=== PATIENT | female | born 1980 | race Caucasian/White ===

== ENCOUNTER 2017-02-24 16:28 | Inpatient (IN) | payer MEDICAID, OTHER ==
[2017-02-24 17:09] LABS: ADD MAN DIFF? NO
[2017-02-24 17:11] LABS: WHITE BLOOD COUNT 10.2 10^3/ul (4.8-10.8)
[2017-02-24 17:11] LABS: BASOPHILS % 0.3 % (0.0-2.0); EOSINOPHILS # 0.1 10^3/ul (0.0-0.5); EOSINOPHILS % 0.9 % (0.0-7.0); HEMATOCRIT 30.9 % (37.0-47.0); HEMOGLOBIN 10.8 g/dl (12.0-16.0); LYMPHOCYTES # 2.9 10^3/ul (0.8-2.9); LYMPHOCYTES % 28.4 % (15.0-51.0); MEAN CORPUSCULAR VOLUME 85.8 fl (82.0-101.0); MEAN PLATELET VOLUME 12.2 fl (7.4-10.4); MONOCYTE # 1.1 10^3/ul (0.3-0.9); MONOCYTES % 10.9 % (0.0-11.0); NEUTROPHIL # 5.9 10^3/ul (1.6-7.5); NEUTROPHILS % 58.1 % (39.0-77.0); PLATELET COUNT 185 10^3/UL (140-415); RED CELL DISTRIBUTION WIDTH 12.3 % (11.5-14.5)
[2017-02-24 17:26] LABS: INR 0.81; PROTIME 11.2 Sec (11.9-14.9); PT RATIO 0.9
[2017-02-24 17:30] LABS: ALANINE AMINOTRANSFERASE 20 IU/L (13-69); ALBUMIN 3.1 g/dl (3.3-4.9); ALBUMIN/GLOBULIN RATIO 0.86; ALKALINE PHOSPHATASE 122 IU/L (42-121); ANION GAP 15 (8-16); ASPARTATE AMINO TRANSFERASE 16 IU/L (15-46); BLOOD UREA NITROGEN 11 mg/dl (7-20); CALCIUM 8.9 mg/dl (8.4-10.2); CARBON DIOXIDE 23 mmol/L (21-31); CHLORIDE 106 mmol/L (97-110); CREATININE 0.67 mg/dl (0.44-1.00); GLUCOSE 90 mg/dl (70-220); SODIUM 140 mmol/L (135-144); TOTAL PROTEIN 6.7 g/dl (6.1-8.1); URIC ACID 5.3 mg/dl (3.1-7.9)
[2017-02-24 17:31] LABS: PARTIAL THROMBOPLASTIN TIME 23.3 Sec (25.0-35.0)
[2017-02-24 18:07] LABS: ADD UMIC YES; UR ASCORBIC ACID NEGATIVE (NEGATIVE); UR BILIRUBIN (Dip) 1+ mg/dL (NEGATIVE); UR BLOOD (Dip) 1+ mg/dL (NEGATIVE); UR CLARITY SLIGHTLY CLOUDY (CLEAR); UR COLOR YELLOW (YELLOW); UR GLUCOSE (Dip) NEGATIVE (NEGATIVE); UR KETONES (Dip) TRACE mg/dL (NEGATIVE); UR LEUKOCYTE ESTERASE (Dip) TRACE Leu/ul (NEGATIVE); UR MUCUS FEW /HPF (NONE SEEN); UR NITRITE (Dip) NEGATIVE (NEGATIVE); UR RBC 20 /HPF (0-5); UR SPECIFIC GRAVITY (Dip) 1.038 (1.003-1.030); UR SQUAMOUS EPITHELIAL CELL FEW /HPF (FEW); UR TOTAL PROTEIN (Dip) 1+ mg/dl (NEGATIVE); UR UROBILINOGEN (Dip) 2+ mg/dL (NEGATIVE); UR WBC 3 /HPF (0-5)
[2017-02-24] MEDS ORDERED: BETAMET NA PHOS/AC(6 MG/ML) 5ML INJ (19:56)
[2017-02-24] MEDS: LACTATED RINGER'S 1,000 ML IV (20:08)
[2017-02-24] MEDS ORDERED: LABETALOL 100 MG TAB (20:13)
[2017-02-24] MEDS: BETAMET NA PHOS/AC(6 MG/ML) 5ML INJ IM (20:30)
[2017-02-24] MEDS: LABETALOL 200 MG TAB PO (20:38)
[2017-02-24] MEDS: DOCUSATE SODIUM 100 MG CAP PO (23:04)
[2017-02-24] MEDS: FERROUS SULFATE (EC) 325 MG TAB PO (23:04)
[2017-02-25] MEDS: ACETAMINOPHEN 325 MG TAB PO (02:32)
[2017-02-25] MEDS: FERROUS SULFATE (EC) 325 MG TAB PO ×2 (08:43→21:04)
[2017-02-25] MEDS: LABETALOL 200 MG TAB PO ×2 (08:43→21:04)
[2017-02-25] MEDS: DOCUSATE SODIUM 100 MG CAP PO ×2 (08:43→21:03)
[2017-02-25] MEDS: PRENATAL VITAMIN PO (08:43)
[2017-02-25 10:59] LABS: ADD MAN DIFF? NO
[2017-02-25 11:05] LABS: BASOPHILS % 0.1 % (0.0-2.0); HEMATOCRIT 32.8 % (37.0-47.0); HEMOGLOBIN 11.1 g/dl (12.0-16.0); LYMPHOCYTES # 1.4 10^3/ul (0.8-2.9); LYMPHOCYTES % 12.8 % (15.0-51.0); MEAN CORPUSCULAR HEMOGLOBIN 29.4 pg (29.0-33.0); MEAN CORPUSCULAR HGB CONC 33.8 g/dl (32.0-37.0); MEAN CORPUSCULAR VOLUME 86.8 fl (82.0-101.0); MEAN PLATELET VOLUME 12.4 fl (7.4-10.4); MONOCYTE # 0.5 10^3/ul (0.3-0.9); MONOCYTES % 4.3 % (0.0-11.0); NEUTROPHIL # 9.1 10^3/ul (1.6-7.5); NEUTROPHILS % 81.4 % (39.0-77.0); PLATELET COUNT 201 10^3/UL (140-415); RED BLOOD COUNT 3.78 10^6/ul (4.20-5.40); RED CELL DISTRIBUTION WIDTH 12.4 % (11.5-14.5)
[2017-02-25 11:05] LABS: WHITE BLOOD COUNT 11.1 10^3/ul (4.8-10.8)
[2017-02-25 11:26] LABS: ALANINE AMINOTRANSFERASE 27 IU/L (13-69); ALBUMIN 3.2 g/dl (3.3-4.9); ALBUMIN/GLOBULIN RATIO 0.94; ALKALINE PHOSPHATASE 125 IU/L (42-121); ANION GAP 17 (8-16); ASPARTATE AMINO TRANSFERASE 18 IU/L (15-46); BLOOD UREA NITROGEN 10 mg/dl (7-20); CALCIUM 8.9 mg/dl (8.4-10.2); CARBON DIOXIDE 18 mmol/L (21-31); CHLORIDE 106 mmol/L (97-110); CREATININE 0.53 mg/dl (0.44-1.00); GLUCOSE 104 mg/dl (70-220); POTASSIUM 4.3 mmol/L (3.5-5.1); SODIUM 137 mmol/L (135-144); TOTAL PROTEIN 6.6 g/dl (6.1-8.1); URIC ACID 5.8 mg/dl (3.1-7.9)
[2017-02-25 12:06] LABS: INR 0.88; PT RATIO 0.9
[2017-02-25 12:07] LABS: PARTIAL THROMBOPLASTIN TIME 23.5 Sec (25.0-35.0)
[2017-02-25] MEDS: BETAMET NA PHOS/AC(6 MG/ML) 5ML INJ IM (20:40)
[2017-02-25 21:31] LABS: COLLECTION PERIOD 24 hrs
[2017-02-25 21:58] LABS: COLLECTION PERIOD 24 hrs; VOLUME 1900 ml/24hrs; VOLUME 1900 mls
[2017-02-25 21:59] LABS: CREATININE,URINE RANDOM 77.59 mg/dl (20-320)
[2017-02-25 22:00] LABS: CREATININE CLEARANCE 193.2 mls/min (84.0-162.0); SCRET 0.53 mg/dl (0.44-1.00)
[2017-02-26] MEDS: FERROUS SULFATE (EC) 325 MG TAB PO (08:52)
[2017-02-26] MEDS: LABETALOL 200 MG TAB PO (08:52)
[2017-02-26] MEDS: DOCUSATE SODIUM 100 MG CAP PO (08:52)
[2017-02-26] MEDS: PRENATAL VITAMIN PO (08:52)
== END 2017-02-26 19:25 | disposition home or self-care (01) | DRG 782 ==
LOC: OBT 16:28 → L-D 16:30 → OBT 20:11 → PP1 20:14
DX: O13.3 Gestational [pregnancy-induced] hypertension without significant proteinuria, third trimester (principal); Z3A.34 34 weeks gestation of pregnancy
CPT/HCPCS: 76815; 76818; 80053; 81001; 82575; 84156; 84560; 85025; 85384; 85610; 85730

== ENCOUNTER 2017-03-04 18:43 | Inpatient (IN) | payer MEDICAID ==
[2017-03-04 20:52] LABS: ADD MAN DIFF? NO
[2017-03-04 20:55] LABS: WHITE BLOOD COUNT 11.7 10^3/ul (4.8-10.8)
[2017-03-04 20:55] LABS: BASOPHILS % 0.3 % (0.0-2.0); EOSINOPHILS # 0.1 10^3/ul (0.0-0.5); EOSINOPHILS % 0.8 % (0.0-7.0); HEMATOCRIT 32.2 % (37.0-47.0); HEMOGLOBIN 11.2 g/dl (12.0-16.0); LYMPHOCYTES # 2.8 10^3/ul (0.8-2.9); LYMPHOCYTES % 24.3 % (15.0-51.0); MEAN CORPUSCULAR HEMOGLOBIN 30.2 pg (29.0-33.0); MEAN CORPUSCULAR HGB CONC 34.8 g/dl (32.0-37.0); MEAN CORPUSCULAR VOLUME 86.8 fl (82.0-101.0); MEAN PLATELET VOLUME 11.8 fl (7.4-10.4); MONOCYTES % 8.4 % (0.0-11.0); NEUTROPHIL # 7.6 10^3/ul (1.6-7.5); NEUTROPHILS % 64.6 % (39.0-77.0); PLATELET COUNT 182 10^3/UL (140-415); RED BLOOD COUNT 3.71 10^6/ul (4.20-5.40); RED CELL DISTRIBUTION WIDTH 13.5 % (11.5-14.5)
[2017-03-04 21:01] LABS: ADD UMIC YES; UR ASCORBIC ACID 40 mg/dL (NEGATIVE); UR BILIRUBIN (Dip) NEGATIVE (NEGATIVE); UR BLOOD (Dip) 1+ mg/dL (NEGATIVE); UR CLARITY CLEAR (CLEAR); UR COLOR YELLOW (YELLOW); UR GLUCOSE (Dip) NEGATIVE (NEGATIVE); UR KETONES (Dip) NEGATIVE (NEGATIVE); UR LEUKOCYTE ESTERASE (Dip) NEGATIVE Leu/ul (NEGATIVE); UR MUCUS FEW /HPF (NONE SEEN); UR NITRITE (Dip) NEGATIVE (NEGATIVE); UR RBC 4 /HPF (0-5); UR SPECIFIC GRAVITY (Dip) 1.023 (1.003-1.030); UR TOTAL PROTEIN (Dip) NEGATIVE (NEGATIVE); UR UROBILINOGEN (Dip) NEGATIVE (NEGATIVE); UR WBC 1 /HPF (0-5)
[2017-03-04 21:06] LABS: INR 0.81; PARTIAL THROMBOPLASTIN TIME 22.3 Sec (25.0-35.0); PROTIME 11.2 Sec (11.9-14.9); PT RATIO 0.9
[2017-03-04 21:15] LABS: ALANINE AMINOTRANSFERASE 29 IU/L (13-69); ALBUMIN 3.3 g/dl (3.3-4.9); ALBUMIN/GLOBULIN RATIO 1.06; ALKALINE PHOSPHATASE 128 IU/L (42-121); ANION GAP 13 (8-16); ASPARTATE AMINO TRANSFERASE 17 IU/L (15-46); BLOOD UREA NITROGEN 12 mg/dl (7-20); CALCIUM 9.2 mg/dl (8.4-10.2); CARBON DIOXIDE 22 mmol/L (21-31); CHLORIDE 104 mmol/L (97-110); CREATININE 0.57 mg/dl (0.44-1.00); GLUCOSE 89 mg/dl (70-220); SODIUM 135 mmol/L (135-144); TOTAL PROTEIN 6.4 g/dl (6.1-8.1); URIC ACID 5.6 mg/dl (3.1-7.9)
[2017-03-05] MEDS: ACETAMINOPHEN 325 MG TAB PO (00:48)
[2017-03-05] MEDS: PRENATAL VITAMIN PO (09:39)
[2017-03-05] MEDS: LABETALOL 200 MG TAB PO ×2 (09:41→20:46)
[2017-03-05] MEDS: LACTATED RINGER'S 1,000 ML IV (23:09)
[2017-03-06] MEDS: LACTATED RINGER'S 1,000 ML IV ×3 (06:39→22:34)
[2017-03-06] MEDS: PRENATAL VITAMIN PO (09:49)
[2017-03-06] MEDS: LABETALOL 200 MG TAB PO ×2 (09:51→21:03)
[2017-03-06] MEDS: LACTATED RINGER'S 500 ML IV (22:02)
[2017-03-07] MEDS: LACTATED RINGER'S 500 ML IV ×6 (01:43→22:00)
[2017-03-07] MEDS: LACTATED RINGER'S 1,000 ML IV ×3 (06:34→22:34)
[2017-03-07] MEDS: PRENATAL VITAMIN PO (09:27)
[2017-03-07] MEDS: LABETALOL 200 MG TAB PO ×2 (09:27→21:15)
[2017-03-08] MEDS: LACTATED RINGER'S 500 ML IV ×5 (02:00→19:00)
[2017-03-08] MEDS: LACTATED RINGER'S 1,000 ML IV ×4 (02:37→22:04)
[2017-03-08] MEDS: PRENATAL VITAMIN PO (09:03)
[2017-03-08] MEDS: LABETALOL 200 MG TAB PO ×2 (09:05→21:09)
[2017-03-09] MEDS: LACTATED RINGER'S 1,000 ML IV (05:50)
[2017-03-09] MEDS: PRENATAL VITAMIN PO (09:36)
[2017-03-09] MEDS: LABETALOL 200 MG TAB PO ×2 (09:36→21:29)
[2017-03-09] MEDS: LACTATED RINGER'S 500 ML IV ×3 (12:46→21:29)
[2017-03-09 13:09] LABS: ADD MAN DIFF? NO
[2017-03-09 13:12] LABS: WHITE BLOOD COUNT 10.1 10^3/ul (4.8-10.8)
[2017-03-09 13:12] LABS: BASOPHILS % 0.3 % (0.0-2.0); EOSINOPHILS # 0.1 10^3/ul (0.0-0.5); EOSINOPHILS % 0.7 % (0.0-7.0); HEMATOCRIT 32.9 % (37.0-47.0); HEMOGLOBIN 11.4 g/dl (12.0-16.0); LYMPHOCYTES # 2.3 10^3/ul (0.8-2.9); LYMPHOCYTES % 22.9 % (15.0-51.0); MEAN CORPUSCULAR HEMOGLOBIN 30.7 pg (29.0-33.0); MEAN CORPUSCULAR HGB CONC 34.7 g/dl (32.0-37.0); MEAN CORPUSCULAR VOLUME 88.7 fl (82.0-101.0); MONOCYTE # 0.8 10^3/ul (0.3-0.9); MONOCYTES % 7.8 % (0.0-11.0); NEUTROPHIL # 6.8 10^3/ul (1.6-7.5); NEUTROPHILS % 67.4 % (39.0-77.0); PLATELET COUNT 164 10^3/UL (140-415); RED BLOOD COUNT 3.71 10^6/ul (4.20-5.40); RED CELL DISTRIBUTION WIDTH 14.1 % (11.5-14.5)
[2017-03-09 13:34] LABS: ALANINE AMINOTRANSFERASE 27 IU/L (13-69); ALBUMIN 3.2 g/dl (3.3-4.9); ALKALINE PHOSPHATASE 134 IU/L (42-121); ANION GAP 15 (8-16); ASPARTATE AMINO TRANSFERASE 21 IU/L (15-46); BLOOD UREA NITROGEN 8 mg/dl (7-20); CALCIUM 8.8 mg/dl (8.4-10.2); CARBON DIOXIDE 21 mmol/L (21-31); CHLORIDE 104 mmol/L (97-110); CREATININE 0.58 mg/dl (0.44-1.00); GLUCOSE 102 mg/dl (70-220); POTASSIUM 3.9 mmol/L (3.5-5.1); SODIUM 136 mmol/L (135-144); TOTAL PROTEIN 6.4 g/dl (6.1-8.1)
[2017-03-09 13:39] LABS: PARTIAL THROMBOPLASTIN TIME 23.5 Sec (25.0-35.0)
[2017-03-09 13:44] LABS: URIC ACID 5.8 mg/dl (3.1-7.9)
[2017-03-09] MEDS: SALINE 0.65% 45 ML NAS SPRAY NASAL (21:31)
[2017-03-10] MEDS: LACTATED RINGER'S 500 ML IV ×6 (01:11→21:00)
[2017-03-10] MEDS: PRENATAL VITAMIN PO (08:45)
[2017-03-10] MEDS: LABETALOL 200 MG TAB PO ×2 (08:45→21:22)
[2017-03-10] MEDS: LACTATED RINGER'S 1,000 ML IV (18:38)
[2017-03-11] MEDS: LACTATED RINGER'S 500 ML IV ×6 (01:00→21:00)
[2017-03-11] MEDS: LACTATED RINGER'S 1,000 ML IV ×3 (02:50→18:16)
[2017-03-11] MEDS: PRENATAL VITAMIN PO (08:30)
[2017-03-11] MEDS: LABETALOL 200 MG TAB PO ×2 (08:31→21:09)
[2017-03-12] MEDS: LACTATED RINGER'S 500 ML IV ×5 (01:00→17:00)
[2017-03-12] MEDS: LACTATED RINGER'S 1,000 ML IV ×3 (03:22→22:07)
[2017-03-12] MEDS: PRENATAL VITAMIN PO (08:28)
[2017-03-12] MEDS: LABETALOL 200 MG TAB PO ×2 (08:28→21:20)
[2017-03-13] MEDS: LACTATED RINGER'S 1,000 ML IV ×3 (02:30→16:50)
[2017-03-13] MEDS: PRENATAL VITAMIN PO (08:58)
[2017-03-13] MEDS: LABETALOL 200 MG TAB PO ×2 (08:58→21:03)
[2017-03-13 16:47] LABS: COLLECTION PERIOD 24 hrs
[2017-03-13 17:08] LABS: 24HR URINE TOTAL PROTEIN 486.8 mg/24hrs (42.0-225.0); VOLUME 4425 mls
[2017-03-13 22:20] LABS: SCRET 0.58 mg/dl (0.44-1.00)
[2017-03-13 23:36] LABS: COLLECTION PERIOD 24 hrs; CREATININE CLEARANCE 182.9 mls/min (84.0-162.0); CREATININE,URINE RANDOM 34.53 mg/dl (20-320); VOLUME 4425 ml/24hrs
[2017-03-14] MEDS: LACTATED RINGER'S 1,000 ML IV ×3 (02:16→17:22)
[2017-03-14] MEDS: PRENATAL VITAMIN PO (08:24)
[2017-03-14] MEDS: LABETALOL 200 MG TAB PO ×2 (08:25→20:51)
[2017-03-14 13:11] LABS: ADD MAN DIFF? NO
[2017-03-14 13:15] LABS: WHITE BLOOD COUNT 7.9 10^3/ul (4.8-10.8)
[2017-03-14 13:15] LABS: BASOPHILS % 0.4 % (0.0-2.0); EOSINOPHILS # 0.1 10^3/ul (0.0-0.5); HEMATOCRIT 34.3 % (37.0-47.0); HEMOGLOBIN 11.9 g/dl (12.0-16.0); LYMPHOCYTES # 2.1 10^3/ul (0.8-2.9); LYMPHOCYTES % 26.6 % (15.0-51.0); MEAN CORPUSCULAR HEMOGLOBIN 30.4 pg (29.0-33.0); MEAN CORPUSCULAR HGB CONC 34.7 g/dl (32.0-37.0); MEAN CORPUSCULAR VOLUME 87.5 fl (82.0-101.0); MEAN PLATELET VOLUME 12.3 fl (7.4-10.4); MONOCYTE # 0.5 10^3/ul (0.3-0.9); MONOCYTES % 6.5 % (0.0-11.0); NEUTROPHIL # 5.1 10^3/ul (1.6-7.5); NEUTROPHILS % 64.7 % (39.0-77.0); PLATELET COUNT 163 10^3/UL (140-415); RED BLOOD COUNT 3.92 10^6/ul (4.20-5.40); RED CELL DISTRIBUTION WIDTH 14.3 % (11.5-14.5)
[2017-03-14 13:37] LABS: ALANINE AMINOTRANSFERASE 30 IU/L (13-69); ALBUMIN 3.3 g/dl (3.3-4.9); ALBUMIN/GLOBULIN RATIO 1.03; ALKALINE PHOSPHATASE 142 IU/L (42-121); ANION GAP 13 (8-16); ASPARTATE AMINO TRANSFERASE 20 IU/L (15-46); BLOOD UREA NITROGEN 7 mg/dl (7-20); CALCIUM 9.1 mg/dl (8.4-10.2); CARBON DIOXIDE 21 mmol/L (21-31); CHLORIDE 106 mmol/L (97-110); CREATININE 0.58 mg/dl (0.44-1.00); GLUCOSE 112 mg/dl (70-220); POTASSIUM 4.3 mmol/L (3.5-5.1); SODIUM 136 mmol/L (135-144); TOTAL PROTEIN 6.5 g/dl (6.1-8.1); URIC ACID 5.6 mg/dl (3.1-7.9)
[2017-03-14 13:38] LABS: INR 0.82; PARTIAL THROMBOPLASTIN TIME 23.5 Sec (25.0-35.0); PROTIME 11.3 Sec (11.9-14.9); PT RATIO 0.9
[2017-03-14] MEDS ORDERED: BETAMET NA PHOS/AC(6 MG/ML) 5ML INJ (17:20)
[2017-03-14] MEDS: BETAMET NA PHOS/AC(6 MG/ML) 5ML INJ IM (17:22)
[2017-03-15] MEDS: LACTATED RINGER'S 1,000 ML IV ×4 (02:19→23:56)
[2017-03-15] MEDS: ACETAMINOPHEN 325 MG TAB PO (08:10)
[2017-03-15] MEDS: LABETALOL 200 MG TAB PO ×2 (09:01→21:16)
[2017-03-15] MEDS: PRENATAL VITAMIN PO (09:01)
[2017-03-15] MEDS: BETAMET NA PHOS/AC(6 MG/ML) 5ML INJ IM (17:05)
[2017-03-16] MEDS: LABETALOL 200 MG TAB PO ×2 (08:51→21:12)
[2017-03-16] MEDS: PRENATAL VITAMIN PO (08:51)
[2017-03-16] MEDS: LACTATED RINGER'S 1,000 ML IV ×2 (09:14→18:42)
[2017-03-17] MEDS: LACTATED RINGER'S 1,000 ML IV ×3 (02:24→15:35)
[2017-03-17] MEDS: PRENATAL VITAMIN PO (09:18)
[2017-03-17] MEDS: LABETALOL 200 MG TAB PO ×2 (09:18→21:03)
[2017-03-17 09:25] LABS: ADD MAN DIFF? NO
[2017-03-17 09:26] LABS: WHITE BLOOD COUNT 11.1 10^3/ul (4.8-10.8)
[2017-03-17 09:26] LABS: BASOPHIL # 0.1 10^3/ul (0.0-0.1); BASOPHILS % 0.4 % (0.0-2.0); EOSINOPHILS % 0.4 % (0.0-7.0); HEMATOCRIT 35.5 % (37.0-47.0); HEMOGLOBIN 12.4 g/dl (12.0-16.0); LYMPHOCYTES % 26.9 % (15.0-51.0); MEAN CORPUSCULAR HEMOGLOBIN 30.7 pg (29.0-33.0); MEAN CORPUSCULAR HGB CONC 34.9 g/dl (32.0-37.0); MEAN CORPUSCULAR VOLUME 87.9 fl (82.0-101.0); MEAN PLATELET VOLUME 12.3 fl (7.4-10.4); MONOCYTE # 0.5 10^3/ul (0.3-0.9); MONOCYTES % 4.8 % (0.0-11.0); NEUTROPHIL # 7.2 10^3/ul (1.6-7.5); NEUTROPHILS % 64.9 % (39.0-77.0); NUCLEATED RED BLOOD CELLS% 0.2 /100WBC (0.0-0.0); PLATELET COUNT 177 10^3/UL (140-415); RED BLOOD COUNT 4.04 10^6/ul (4.20-5.40); RED CELL DISTRIBUTION WIDTH 14.6 % (11.5-14.5)
[2017-03-17 09:54] LABS: ALANINE AMINOTRANSFERASE 33 IU/L (13-69); ALBUMIN 3.6 g/dl (3.3-4.9); ALKALINE PHOSPHATASE 159 IU/L (42-121); ANION GAP 15 (8-16); ASPARTATE AMINO TRANSFERASE 23 IU/L (15-46); BLOOD UREA NITROGEN 7 mg/dl (7-20); CALCIUM 9.5 mg/dl (8.4-10.2); CARBON DIOXIDE 24 mmol/L (21-31); CHLORIDE 105 mmol/L (97-110); CREATININE 0.57 mg/dl (0.44-1.00); GLUCOSE 94 mg/dl (70-220); POTASSIUM 3.5 mmol/L (3.5-5.1); SODIUM 140 mmol/L (135-144); TOTAL PROTEIN 7.2 g/dl (6.1-8.1); URIC ACID 6.1 mg/dl (3.1-7.9)
[2017-03-17 10:13] LABS: ADD UMIC YES; UR ASCORBIC ACID NEGATIVE (NEGATIVE); UR BACTERIA FEW /HPF (NONE SEEN); UR BILIRUBIN (Dip) NEGATIVE (NEGATIVE); UR BLOOD (Dip) 2+ mg/dL (NEGATIVE); UR CLARITY SLIGHTLY CLOUDY (CLEAR); UR COLOR STRAW (YELLOW); UR GLUCOSE (Dip) NEGATIVE (NEGATIVE); UR KETONES (Dip) NEGATIVE (NEGATIVE); UR LEUKOCYTE ESTERASE (Dip) 3+ Leu/ul (NEGATIVE); UR MUCUS FEW /HPF (NONE SEEN); UR NITRITE (Dip) NEGATIVE (NEGATIVE); UR RBC 3 /HPF (0-5); UR SQUAMOUS EPITHELIAL CELL FEW /HPF (FEW); UR TOTAL PROTEIN (Dip) NEGATIVE (NEGATIVE); UR UROBILINOGEN (Dip) NEGATIVE (NEGATIVE); UR WBC 18 /HPF (0-5)
[2017-03-17] MEDS ORDERED: CARBOPROST 250 MCG INJ IM ×2 (11:30→20:00)
[2017-03-17] MEDS ORDERED: OXYTOCIN 30 UNITS/LR 500 ML IV ×3 (11:30→20:00)
[2017-03-17] MEDS ORDERED: METHYLERGONOVINE 0.2 MG INJ IM ×2 (11:30→20:00)
[2017-03-17] MEDS ORDERED: MISOPROSTOL 200 MCG TAB PR ×2 (11:30→20:00)
[2017-03-17 12:42] LABS: INR 0.79; PARTIAL THROMBOPLASTIN TIME 22.6 Sec (25.0-35.0); PT RATIO 0.9
[2017-03-17 13:05] LABS: HEPATITIS B SURFACE ANTIGEN NEGATIVE (NEGATIVE)
[2017-03-17 15:30] LABS: RAPID PLASMA REAGIN NONREACTIVE (NR)
[2017-03-17] MEDS ORDERED: morphine SULFATE/PF (10 MG/10 ML) INJ (16:54)
[2017-03-17] MEDS ORDERED: ONDANSETRON 4 MG INJ (16:54)
[2017-03-17] MEDS ORDERED: EPHEDrine SULFATE 50 MG/5 ML SYG (16:54)
[2017-03-17] MEDS ORDERED: METOCLOPRAMIDE 10 MG INJ (16:55)
[2017-03-17] MEDS ORDERED: OXYTOCIN 10 UNIT INJ (16:55)
[2017-03-17] MEDS: CEFAZOLIN 2 GM/50 ML (PMX) 50 ML IV ×2 (17:00→21:04)
[2017-03-17] MEDS ORDERED: EPHEDrine SULFATE 50 MG/5 ML SYG IV (18:30)
[2017-03-17] MEDS ORDERED: KETOROLAC 30 MG INJ IV (18:30)
[2017-03-17] MEDS ORDERED: DIPHENHYDRAMINE 50 MG INJ IV (18:30)
[2017-03-17] MEDS ORDERED: NALOXONE (0.4 MG/ML) INJ IV (18:30)
[2017-03-17] MEDS ORDERED: morphine 4 MG/ML VIAL IV (18:30)
[2017-03-17] MEDS ORDERED: ONDANSETRON 4 MG INJ IV (18:30)
[2017-03-17] MEDS ORDERED: morphine 2 MG INJ IV (18:30)
[2017-03-17] MEDS: MAGNESIUM SULFATE 4 GM/100 ML 100 ML IVPB (18:37)
[2017-03-17] MEDS: morphine SULFATE/PF (10 MG/10 ML) INJ SPINAL (18:52)
[2017-03-17] MEDS: MAGNESIUM SULFATE 20 GM/500 ML 500 ML IV (19:25)
[2017-03-17] MEDS ORDERED: NA PHOSPHATE/BIPHOS 133 ML ENEMA PR (20:00)
[2017-03-17] MEDS: MAGNESIUM SULFATE 4 GM/100 ML 100 ML IV (20:00)
[2017-03-17] MEDS ORDERED: LANOLIN 7 GM TUBE TOP (20:00)
[2017-03-17] MEDS: CLINDAMYCIN 300 MG CAP PO (21:34)
[2017-03-17] MEDS: SENNA/DOCUSATE NA (8.6MG/50MG) TAB PO (21:40)
[2017-03-17] MEDS: LACTATED RINGER'S 500 ML IV (23:10)
[2017-03-17] MEDS ORDERED: LACTATED RINGER'S 500 ML IV (23:30)
[2017-03-18 00:27] LABS: MAGNESIUM 4.7 mg/dl (1.7-2.5)
[2017-03-18] MEDS: CLINDAMYCIN 300 MG CAP PO ×4 (00:35→18:18)
[2017-03-18] MEDS: LACTATED RINGER'S 1,000 ML IV ×4 (03:49→19:49)
[2017-03-18] MEDS: CEFAZOLIN 2 GM/50 ML (PMX) 50 ML IV ×2 (03:53→11:28)
[2017-03-18] MEDS: LACTATED RINGER'S 500 ML IV ×6 (03:58→23:30)
[2017-03-18] MEDS: MAGNESIUM SULFATE 20 GM/500 ML 500 ML IV ×3 (04:37→15:49)
[2017-03-18] MEDS: LABETALOL 200 MG TAB PO ×2 (09:21→20:31)
[2017-03-18] MEDS: PRENATAL VITAMIN PO (09:22)
[2017-03-18] MEDS: SENNA/DOCUSATE NA (8.6MG/50MG) TAB PO ×2 (09:22→20:30)
[2017-03-18 09:27] LABS: ADD MAN DIFF? NO
[2017-03-18 09:31] LABS: WHITE BLOOD COUNT 11.8 10^3/ul (4.8-10.8)
[2017-03-18 09:31] LABS: BASOPHILS % 0.3 % (0.0-2.0); EOSINOPHILS % 0.3 % (0.0-7.0); HEMATOCRIT 33.1 % (37.0-47.0); HEMOGLOBIN 11.4 g/dl (12.0-16.0); LYMPHOCYTES # 2.3 10^3/ul (0.8-2.9); LYMPHOCYTES % 19.2 % (15.0-51.0); MEAN CORPUSCULAR HEMOGLOBIN 30.4 pg (29.0-33.0); MEAN CORPUSCULAR HGB CONC 34.4 g/dl (32.0-37.0); MEAN CORPUSCULAR VOLUME 88.3 fl (82.0-101.0); MONOCYTE # 0.8 10^3/ul (0.3-0.9); MONOCYTES % 6.8 % (0.0-11.0); NEUTROPHIL # 8.6 10^3/ul (1.6-7.5); NEUTROPHILS % 72.3 % (39.0-77.0); PLATELET COUNT 165 10^3/UL (140-415); RED BLOOD COUNT 3.75 10^6/ul (4.20-5.40); RED CELL DISTRIBUTION WIDTH 14.6 % (11.5-14.5)
[2017-03-18 09:52] LABS: ALANINE AMINOTRANSFERASE 34 IU/L (13-69); ALBUMIN 2.8 g/dl (3.3-4.9); ALKALINE PHOSPHATASE 151 IU/L (42-121); ANION GAP 11 (8-16); ASPARTATE AMINO TRANSFERASE 28 IU/L (15-46); BILIRUBIN,INDIRECT 0.1 mg/dl (0-1.1); BILIRUBIN,TOTAL 0.1 mg/dl (0.2-1.3); BLOOD UREA NITROGEN 9 mg/dl (7-20); CALCIUM 7.4 mg/dl (8.4-10.2); CARBON DIOXIDE 23 mmol/L (21-31); CHLORIDE 99 mmol/L (97-110); CREATININE 0.58 mg/dl (0.44-1.00); GLUCOSE 73 mg/dl (70-220); POTASSIUM 4.3 mmol/L (3.5-5.1); SODIUM 129 mmol/L (135-144); TOTAL PROTEIN 5.6 g/dl (6.1-8.1)
[2017-03-18 09:55] LABS: MAGNESIUM 5.9 mg/dl (1.7-2.5)
[2017-03-18] MEDS: BISACODYL 10 MG SUPP PR (11:46)
[2017-03-18] MEDS: IBUPROFEN 800 MG TAB PO (18:18)
[2017-03-18] MEDS ORDERED: OXYCODONE/ACETAMINOPHEN (5/325) TAB PO (18:30)
[2017-03-18] MEDS ORDERED: HYDROCODONE/APAP (5/325) TAB PO (18:30)
[2017-03-19] MEDS: CLINDAMYCIN 300 MG CAP PO ×5 (00:54→23:53)
[2017-03-19] MEDS: LACTATED RINGER'S 500 ML IV (03:30)
[2017-03-19] MEDS: LACTATED RINGER'S 1,000 ML IV (03:49)
[2017-03-19] MEDS: IBUPROFEN 800 MG TAB PO ×3 (06:50→22:08)
[2017-03-19] MEDS: PRENATAL VITAMIN PO (09:13)
[2017-03-19] MEDS: SENNA/DOCUSATE NA (8.6MG/50MG) TAB PO ×2 (09:13→21:02)
[2017-03-19] MEDS: LABETALOL 200 MG TAB PO ×2 (09:14→21:03)
[2017-03-20] MEDS: IBUPROFEN 800 MG TAB PO (05:55)
[2017-03-20] MEDS: CLINDAMYCIN 300 MG CAP PO (05:55)
[2017-03-20] MEDS: DIPHTH/TET/ACEL PERTUSS (ADULT) 0.5 ML VIAL IM* (08:44)
[2017-03-20] MEDS: PRENATAL VITAMIN PO (09:08)
[2017-03-20] MEDS: SENNA/DOCUSATE NA (8.6MG/50MG) TAB PO (09:08)
[2017-03-20] MEDS: LABETALOL 200 MG TAB PO (09:08)
== END 2017-03-20 10:10 | disposition home or self-care (01) | DRG 765 ==
LOC: OBT 18:43 → PP1 03-11 10:16 → L-D 03-17 12:04 → PP1 03-05 00:41 → L-D 19:14 → PP1 03-17 22:47
PROC: 10D00Z1 Extraction of Products of Conception, Low, Open Approach (ICD-10-PCS; principal; 2017-03-17 17:00)
DX: O13.4 Gestational [pregnancy-induced] hypertension without significant proteinuria, complicating childbirth (principal); O41.03X0 Oligohydramnios, third trimester, not applicable or unspecified; O60.14X0 Preterm labor third trimester with preterm delivery third trimester, not applicable or unspecified; O36.5930 Maternal care for other known or suspected poor fetal growth, third trimester, not applicable or unspecified; O99.214 Obesity complicating childbirth; E66.9 Obesity, unspecified; Z68.37 Body mass index [BMI] 37.0-37.9, adult; Z3A.33 33 weeks gestation of pregnancy; Z37.0 Single live birth
CPT/HCPCS: 76815; 76816; 76818; 76820; 80053; 81001; 82575; 83735; 84156; 84560; 85025; 85335; 85610; 85730; 86592; 86850; 86900; 86901; 87081; 87340; 90715; 99464